=== PATIENT | male | born 1980 | race Caucasian/White ===

== ENCOUNTER 2020-01-01 15:12 | Outpatient (CLI) | payer OTHER ==
[2020-01-01 16:25] VITALS: BP 110/80
--- NOTE | 2020-01-01 16:25 | SLEEP CARE CONSULTATION ---
Information from patient questionnaire entered by Maribel Burdick. I have reviewed and concur with the information entered by Maribel Burdick. This document represents the service I personally performed and the decisions made by me, Viky Lyle ARNP. History of Present Illness Service Date and Time: 01/01/2020 1512 Reason for Visit: New patient, Previously diagnosed sleep apnea, sleep apnea on CPAP therapy Chief Complaint: reports: Unrefreshed sleep, Snoring, Excessive daytime sleepiness, Observed pauses in breathing, Fatigue, Frequent awakenings at night, Other (headache). denies: Insomnia Date of Onset: 12-15 years Usual bedtime: 9 pm Snores at night: Yes Observed to quit breathing while asleep: Yes Sleeps alone due to snoring: No Number of times waking at night: 4-6 Reasons for waking at night: reports: Snoring (when not using machine), Gasping for air (when not using machine), Bathroom. 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 He states when he was diagnosed he had to do two studies and was told after the second study that he had more central apneas than obstructive ones. He states lower pressures felt better but did not adequately control his apneas. He states he has reduced all of his chief complaints with use of CPAP therapy. He states the more he can use the machine the better he feels overall. He has been feeling that the pressure in the mask is too high. He uses the ramp feature but still has difficulty falling asleep and cannot get back to sleep with the mask on if he wakes up during the night because the pressure in the mask is too high. He is tightening the straps very tight to keep it on and this reduces air leaks completely. He really likes using this therapy and would like to see what can be done to improve this feeling of elevated pressure so he can more easily use the machine. - Parasomnia Symptoms Ever been unable to move upon waking from sleep: No Walks in sleep: No Talks in sleep: No Ever acted out dreams in sleep: Yes Ever felt weak in the knees when startled or emotional: No Bothered by creepy, crawly, restless sensations in legs: No Problems with memory or concentration: Yes CPAP Compliance Data - Data Reviewed with Patient Average duration of nightly device use: 5.9 Compliance rate %: 66.1 (180 days) Current pressure setting (cmH2O): 12-14 Humidity settin Heated hose settin Average residual AHI: 3.7 Central apnea: 1.2 Obstructive apnea: 1.1 Average large leak: 27 mins 12 sec Subjective Patient concerns: reports: mask discomfort (has to tighten straps due to pressure being so high; very tight to face). denies: aerophagia, air blowing in eyes, mask leak noise, condensation in mask/hose, nasal congestion, dry mouth, nose, throat, epistaxis, other Observed to snore while using device: No Current pressure setting perceived as: too high On therapy, patient: reports: sleeping better, awakening more refreshed, being more awake and alert during the day, more rested overall. denies: drowsiness while driving Initial [place] Sleepiness Scale score: 14 (in 2019) Past Medical History Past Medical History: reports: Anxiety, Depression, Mood disorder, Other (Chronic migraines, enlarged prostate, PTSD, chronic neck pain, Tinnitus). denies: Hypertension, Claustrophobia, Congestive Heart Failure, Diabetes, Stroke, Coronary Heart Disease, Gout, Arrythmia, Hypothyroidism, Anemia, Impotence, Asthma, GERD Social History The patient's occupation is a [employer]. Patient is and lives in [place]. Have you smoked in the past 12 months: No Cigarettes per day (20/pack): 20 Years of smokin Quit date: 2017 Smoking Pack Years: 9.0 Alcohol use: Yes Alcohol amount and frequency: 3 beers once a week Caffeine use: Yes Caffeine amount and frequency: 1 cup of coffee a day Family History Family history of sleep disordered breathing: No Family Hx Sleep Apnea: Sibling: Snoring Allergies and Home Medications Drug allergies reviewed: Yes (NKDA) Home medication list reviewed: Yes Allergy and home medication list: Aimovig 140 ml Maxalt 10 mg Flomax Review of Systems Weight loss over past 5 years: 30 Cardiovascular: denies: high blood pressure, palpitations, chest pain, irregular heart rate or pulse, leg or foot swelling, have to sleep sitting up Respiratory: denies: shortness of breath, chronic cough Gastrointestinal: denies: heartburn, difficulty swallowing Urinary: reports: frequency, urgency. denies: impotence Neurological: reports: headaches. denies: seizure, head trauma, disorientation, speech dysfunction, gait or balance problems, fainting or unconsciousness Psychiatric: reports: anxiety, depression, mood disorder, other (PTSD). denies: Attention Deficit Hyperactivity, claustrophobia Ear/Nose/Throat: reports: nasal congestion (right side always plugged), tonsillectomy, wisdom teeth removed. denies: sinus problems, nose bleeds, dry mouth/throat, hoarseness, injury to nose Endocrine: denies: thyroid disease Musculoskeletal: reports: neck pain. denies: muscle pain or cramping, mobility problems Immunologic: reports: other (Pet dander) Physical Exam Blood Pressure: 110/80 Cuff size: long Heart Rate: 65 O2 Saturation: 99 Height: 5 ft 9 in Weight: 183 lb Body Mass Index: 27.0 BMI Classification: Overweight HEENT: No craniofacial malformation Nostrils: partially obstructed Turbinates: normal Septum: midline Mouth and throat: narrow oropharynx Soft palate: normal Hard palate: arched Uvula: normal Uvula visualization: 50% Mallampati Class II Tongue: normal in size Tonsils: absent bilaterally Chin and jaw: normal size and position Neck: normal w/o lymphadenopathy or thyromegaly Heart: regular rate and rhythm Lungs: clear bilaterally Impression and Plan 1. Obstructive Sleep Apnea-Hypopnea Syndrome, unknown, with good treatment compliance and good apnea control. On CPAP therapy, there is improved sleep quality and feels more rested overall. We do not yet have a copy of his records, including sleep study but patient states he was moderate to severe with obstructive/central apneas mixed. He will attempt to obtain records and get them to us. He has been feeling like the pressure is too much and he is having a hard time using the CPAP. He states he has been using the ramp feature but if he wakes up during the night he cannot return to sleep because the pressure feels so high. He is also tightening the straps on the mask to get a good seal due to the pressure being too high. I will lower the pressure down to 10-14 cm H2O and have him follow up with us in a month to see how he is responding and if this reduces his discomfort from the pressure. Patient's apnea severity and rationale for treatment to reduce apnea, improve sleep quality and reduce cardiovascular and cerebrovascular events was reviewed. I also reviewed the benefit of consistent device use of CPAP to reduce his risks for hypertension, cardiac disease, cerebrovascular disease, arrhythmia, diabetes, depression/anxiety and migranes. Change auto CPAP pressure at 10-14 cm H2O. Notify me if snoring with the mask or feeling that the pressure is too much or too little. Attempt to lose weight. Obtain previous sleep study and other records and return to office. Return for follow-up in 1 month, or sooner if concerns arise. Visit Type: In Office Time Spent with Patient (minutes): 40 Provider Statement: I spent 100% of the Face to Face Visit with the patient with greater than 50% spent counseling the patient and coordination of care.
== END 2020-01-01 15:13 | disposition home or self-care (01) ==
LOC: SC 15:12
PROVIDERS: ATTEND Nurse Practitioner Family
DX: G47.33 Obstructive sleep apnea (adult) (pediatric) (principal); E66.3 Overweight; Z68.27 Body mass index [BMI] 27.0-27.9, adult
CPT/HCPCS: 99204; 99212

== ENCOUNTER 2020-02-01 09:43 | Outpatient (CLI) | payer OTHER ==
--- NOTE | 2020-02-01 10:27 | SLEEP CARE CONSULTATION ---
Information from patient questionnaire entered by Maribel Burdick. I have reviewed and concur with the information entered by Maribel Burdick. This document represents the service I personally performed and the decisions made by me, Viky Lyle ARNP. History of Present Illness Service Date and Time: 02/01/2020 09 Previous diagnosis: Obstructive Sleep Apnea-Hypopnea Syndrome AHI: 0 (unknown, in 2018 or 2019) Reason for follow up: one month (with pressure change) Equipment type: CPAP Equipment obtained from: [employer] (CPAP Medical good but now with [place] and feels like getting run around) Mask style: Full face Backup mask available: Yes (old mask) Last cushion change: 2 weeks ago Prior sleep studies: Yes Year and Where: 2018 and 2019 - [facility] in [place], [place] HPI additional information: DENICE ANDERSEN was diagnosed to have unknown, AHI unknown, obstructive sleep apnea- hypopnea syndrome and returned today one month with pressure change follow-up. Patient has not yet been able to get his previous study information to our office. Sleep Study - Results Prior sleep studies: Yes Year and Where: 2018 and 2019 - [facility] in [place], [place] CPAP Compliance Data - Data Reviewed with Patient Average duration of nightly device use: 5 hours 23 minutes Compliance rate %: 76.7 Current pressure setting (cmH2O): 10-14 Average residual AHI: 2.4 Average large leak: 1 minute 4 seconds Subjective Missed days of use due to: reports: other (Heat) Patient concerns: reports: nasal congestion (alternating congestion in nasal passages that clears 1-2 hour after getting off of CPAP), other (Still having some issues with waking up in middle night and having mask comfort/pressure issue, but has improved with reduction of pressure). denies: aerophagia, mask discomfort, air blowing in eyes, mask leak noise, condensation in mask/hose, dry mouth, nose, throat, epistaxis Observed to snore while using device: No Current pressure setting perceived as: comfortable On therapy, patient: reports: sleeping better, awakening more refreshed, being more awake and alert during the day, more rested overall. denies: drowsiness while driving Initial [place] Sleepiness Scale score: 14 (in 2019) Current [place] Sleepiness Scale score: 13 Allergies and Home Medications Drug allergies reviewed: Yes (NKDA) Home medication list reviewed: Yes (no changes) Review of Systems Review of systems same as previous: Yes (No changes) Physical Exam Heart Rate: 61 O2 Saturation: 98 Height: 5 ft 9 in Weight: 180 lb Body Mass Index: 26.6 BMI Classification: Overweight Impression and Plan 1. Obstructive Sleep Apnea-Hypopnea Syndrome, unknown, with good treatment compliance and good apnea control. On CPAP therapy, the patient has better sleep quality and is more rested overall. Nasal congestion can be reduced with increasing the CPAP humidity as shown on sample device. The heated hose can be adjusted higher if condensation with higher humidity setting. Saline nasal spray sample was also given to use prior to CPAP to clear nasal secretions and wash off any nasal allergens to facilitate nasal breathing. In addition, a steamy shower before bed will often assist nasal drainage. Printed instructions given on how to change humidity and heated hose settings with rationale explaining why to change. Patient's apnea severity and rationale for treatment to reduce apnea, improve sleep quality and reduce cardiovascular and cerebrovascular events was reviewed. I also reviewed the benefit of consistent device use of CPAP for hypertension, cardiac disease, cerebrovascular disease, arrhythmia, depression, and migraines. * Continue auto CPAP pressure at 10-14 cmH2O * Obtain previous study information and bring in to office * Notify me if snoring with mask or feeling that the pressure is too much or too little * Attempt to lose weight * Call this office if any problems using CPAP * Return for follow up in 1 year, or sooner if concerns arise Visit Type: In Office Time Spent with Patient (minutes): 19 Provider Statement: I spent 100% of the Face to Face Visit with the patient with greater than 50% spent counseling the patient and coordination of care.
== END 2020-02-01 09:44 | disposition home or self-care (01) ==
LOC: SC 09:43
PROVIDERS: ATTEND Nurse Practitioner Family
DX: G47.33 Obstructive sleep apnea (adult) (pediatric) (principal); E66.3 Overweight; Z68.26 Body mass index [BMI] 26.0-26.9, adult
CPT/HCPCS: 99212; 99213

== ENCOUNTER 2021-01-13 10:20 | Outpatient (CLI) | payer OTHER ==
--- NOTE | 2021-01-13 10:44 | SLEEP CARE CONSULTATION ---
Information from patient questionnaire entered by Maribel Burdick. I have reviewed and concur with the information entered by Maribel Burdick. This document represents the service I personally performed and the decisions made by , Viky Lyle ARNP. History of Present Illness Service Date and Time: 01/13/2021 1020 Previous diagnosis: Moderate, Obstructive Sleep Apnea-Hypopnea Syndrome AHI: 18.9 (in 2019) Reason for follow up: annual (last seen 12/2019) Equipment type: CPAP Equipment obtained from: [employer] (getting supplies but has had difficulty getting orders right) Mask style: Full face Backup mask available: Yes (old mask) Last cushion change: not sure, 1-2 months Prior sleep studies: Yes Year and Where: 2019 - [facility] in [facility] additional information: DENICE ANDERSEN was diagnosed to have moderate, AHI 18.9, obstructive sleep apnea- hypopnea syndrome and returned today for CPAP therapy annual follow-up. CPAP Compliance Data - Data Reviewed with Patient Average duration of nightly device use: 6 hr 29 min Compliance rate %: 82.2 (180 days) Current pressure setting (cmH2O): 10-14 Humidity settin Heated hose settin Average residual AHI: 3.2 Average large leak: 6 min 2 sec Subjective Missed days of use due to: reports: illness, travel, other (unit recall) Patient concerns: reports: other (recall on machine). denies: aerophagia, mask discomfort, air blowing in eyes, mask leak noise, condensation in mask/hose, nasal congestion, dry mouth, nose, throat, epistaxis Observed to snore while using device: No Current pressure setting perceived as: comfortable On therapy, patient: reports: sleeping better, awakening more refreshed, being more awake and alert during the day, more rested overall. denies: drowsiness while driving Initial [place] Sleepiness Scale score: 14 (in 2020) Current [place] Sleepiness Scale score: 16 Allergies and Home Medications Home medication list reviewed: Yes (Aimovig) Review of Systems Review of systems same as previous: Yes (no changes) Physical Exam Heart Rate: 72 O2 Saturation: 98 Height: 5 ft 9 in Weight: 187 lb Body Mass Index: 27.6 BMI Classification: Overweight Impression and Plan 1. Obstructive Sleep Apnea-Hypopnea Syndrome, moderate, with good treatment compliance and good apnea control. On CPAP therapy, the patient has better sleep quality and is more rested overall. Patient heard about the recall and stopped using his CPAP due to possible cancer risks. He is getting more tired, having a hard time focusing since not able to used his device and would like to get it replaced. He has that will replace his device if on the recall. Patient has already registered their device for the recall. Patient denies any black particles seen in machine or hoses or any unusual odors coming from device. He has experienced some excess mucus in his throat and a cough with use this last year. I will write for a replacement device and have patient follow up after he obtains his new machine for a compliance followup. Patient voiced understanding and agreement with plan. Patient's apnea severity and rationale for treatment to reduce apnea, improve sleep quality and reduce cardiovascular and cerebrovascular events was reviewed. I also reviewed the benefit of consistent device use of CPAP for hypertension, cardiac disease, cerebrovascular disease, arrhythmia, depression and migraines. * Continue auto CPAP pressure at 10-14 cmH2O * Replacement device for recalled machine * Notify me if snoring with mask or feeling that the pressure is too much or too little * Attempt to lose weight * Call this office if any problems using CPAP * Return for follow up one month after obtaining device, or sooner if concerns arise Counseling Topics: Spare mask, Weight loss health impact Visit Type: In Office Time Spent with Patient (minutes): 24 Provider Statement: I spent 100% of the Face to Face Visit with the patient with greater than 50% spent counseling the patient and coordination of care.
== END 2021-01-13 10:21 | disposition home or self-care (01) ==
LOC: SC 10:20
PROVIDERS: ATTEND Nurse Practitioner Family
DX: G47.33 Obstructive sleep apnea (adult) (pediatric) (principal)
CPT/HCPCS: 99212; 99213

== ENCOUNTER 2021-04-26 13:51 | Outpatient (CLI) | payer OTHER ==
[2021-04-26 14:36] VITALS: BP 122/69
--- NOTE | 2021-04-26 14:36 | SLEEP CARE CONSULTATION ---
Information from patient questionnaire entered by Sergio Calvert MA. I have reviewed and concur with the information entered by Sergio Calvert MA. This document represents the service I personally performed and the decisions made by , Viky Lyle ARNP. History of Present Illness Service Date and Time: 04/26/2021 1351 Previous diagnosis: Moderate, Obstructive Sleep Apnea-Hypopnea Syndrome AHI: 18.9 (in 2018) Reason for follow up: first compliance (IST COMPLIANCE - 02/04 RESMED), first compliance after device update Equipment type: CPAP Equipment obtained from: [employer] (hasn't got any supplies for a while, needs to check with them) Mask style: Full face Backup mask available: Yes (old mask) Last cushion change: 2-3 weeks Prior sleep studies: Yes Year and Where: 2018 - [facility] in [place], [place] HPI additional information: DENICE ANDERSEN was diagnosed to have moderate, AHI 18.9, obstructive sleep apnea- hypopnea syndrome and returned today for CPAP therapy first compliance after device update follow-up. Sleep Study - Results Prior sleep studies: Yes Year and Where: 2019 - [facility] in [place], [place] CPAP Compliance Data - Data Reviewed with Patient Average duration of nightly device use: 6 HOURS 24 MINUTES Compliance rate %: 87 (per PT missed days due to surgery) Current pressure setting (cmH2O): 10-14 Average residual AHI: 2.6 Central apnea: 1.8 Obstructive apnea: .7 Subjective Missed days of use due to: reports: other (missed days after Septoplasty in March) Patient concerns: denies: aerophagia, mask discomfort, air blowing in eyes, mask leak noise, condensation in mask/hose, nasal congestion, dry mouth, nose, throat, epistaxis, other Observed to snore while using device: No Current pressure setting perceived as: comfortable On therapy, patient: reports: sleeping better, awakening more refreshed, being more awake and alert during the day, more rested overall. denies: drowsiness while driving Initial [place] Sleepiness Scale score: 14 (in 2019) Current [place] Sleepiness Scale score: 17 (in 2020) Allergies and Home Medications Known drug allergies: Yes (animal dander) Home medication list reviewed: Yes (no change) Review of Systems Review of systems same as previous: No (Septoplasty (Mar 30), healing well) Physical Exam Vital signs obtained and entered by: Augustin CALVERT CMA [facility] Blood Pressure: 122/69 (left) Cuff size: wrist Heart Rate: 72 O2 Saturation: 97 (with mask) Height: 5 ft 9 in Weight: 188 lb (with boots and uniform) Body Mass Index: 27.7 BMI Classification: Overweight Impression and Plan 1. Obstructive Sleep Apnea-Hypopnea Syndrome, moderate, with good treatment compliance and good apnea control. On CPAP therapy, the patient has better sleep quality and is more rested overall. Patient is satisfied with current therapy and has significant reduction of his sleep apneas. He is happy with new device. Patient's apnea severity and rationale for treatment to reduce apnea, improve sleep quality and reduce cardiovascular and cerebrovascular events was reviewed. I also reviewed the benefit of consistent device use of CPAP for hypertension, cardiac disease, cerebrovascular disease, arrhythmia, depression and migraines. Patient was encouraged to lose weight for their overall health and to reduce apneas. * Continue auto CPAP pressure at 10-14 cmH2O * Notify me if snoring with mask or feeling that the pressure is too much or too little * Attempt to lose weight * Call this office if any problems using CPAP * Return for follow up in 1 year, or sooner if concerns arise Counseling Topics: Spare mask, Weight loss health impact Visit Type: In Office Time Spent with Patient (minutes): 11 Provider Statement: I spent 100% of the Face to Face Visit with the patient with greater than 50% spent counseling the patient and coordination of care.
== END 2021-04-26 13:52 | disposition home or self-care (01) ==
LOC: SC 13:51
PROVIDERS: ATTEND Nurse Practitioner Family
DX: G47.33 Obstructive sleep apnea (adult) (pediatric) (principal)
CPT/HCPCS: 99212

== ENCOUNTER 2022-08-21 09:40 | Outpatient (CLI) | payer OTHER ==
--- NOTE | 2022-08-21 12:40 | MRI Report ---
PROCEDURE: CERVICAL SPINE WO INDICATIONS: CERVICALGIA TECHNIQUE: Noncontrast sagittal T1 spin echo and T2 fast spin echo, sagittal STIR, foraminal oblique sagittal T2 fast spin echo, and axial gradient echo or T2 fast spin echo through the cervical spine. COMPARISON: None. FINDINGS: Image quality: Excellent. Alignment and Curvature: There is normal bony alignment. Bone Marrow: Marrow demonstrates normal overall signal. Spinal Cord: Visualized spinal cord has normal size and signal. No cerebellar tonsillar herniation. Paraspinous Soft Tissues: No paravertebral masses. Prevertebral soft tissues are normal in thicknes s. C2-C3: Normal in appearance. C3-C4: Mild disc bulge. No canal stenosis. AP diameter of the canal is 13.3 mm. No foraminal stenos is. C4-C5: Mild broad-based central posterior disc protrusion indenting on the cord. No canal stenosis. AP diameter of the canal is 11.7 mm. Foramina are patent. C5-C6: Posterior annulus tear. Mild broad-based posterior disc protrusion, slightly eccentric to the right, indenting on the cord. No canal stenosis. AP diameter of the canal measures 12.6 mm. Foramina are patent. C6-C7: Mild posterior disc bulge. No canal stenosis. AP diameter of the canal is 12.6 mm. No foramin al stenosis. C7-T1: Shallow right paracentral disc protrusion. No canal stenosis. AP diameter of the canal is 13. 8 mm. No foraminal stenosis. IMPRESSION: 1. There are disc protrusions at C4-C5 and C5-C6 which indent on the cord. There is posterior annulus tear at C5-C6. However, there is no associated canal stenosis. 2. No canal stenosis or foraminal stenosis. 3. Normal appearance of cervical cord. Reviewed by: Sebastián Carlton MD on 08/21/2022 12:39 PM PDT Approved by: Sebastián Carlton MD on 08/21/2022 12:39 PM PDT Station ID: [id number]
== END 2022-08-21 09:41 | disposition home or self-care (01) ==
LOC: DI 09:40
PROVIDERS: ATTEND Physician Assistant
DX: M50.222 Other cervical disc displacement at C5-C6 level (principal); M50.322 Other cervical disc degeneration at C5-C6 level

== ENCOUNTER 2023-01-31 16:41 | Outpatient (CLI) | payer OTHER ==
--- NOTE | 2023-01-31 11:34 | SLEEP CARE CONSULTATION ---
Information from patient questionnaire entered by Bekah Garsia. I have reviewed and concur with the information entered by Bekah Garsia. This document represents the service I personally performed and the decisions made by me, Viky Lyle ARNP. History of Present Illness Service Date and Time: 01/31/2023 1120 Previous diagnosis: Moderate, Obstructive Sleep Apnea-Hypopnea Syndrome AHI: 18.9 (in 2018) Reason for follow up: annual (LAST SEEN 04/2021) Equipment type: CPAP (RESMED Airsense 11, s/u 01/2021) Equipment obtained from: [facility] (not getting supplies, needs updated prescriptio n) Mask style: Full face Mask brand: Respironics (Dreamwear) Backup mask available: Yes (other mask) Last cushion change: last November Prior sleep studies: Yes Year and Where: 2018 - [facility] in [place], [place] HPI additional information: DENICE ANDERSEN was diagnosed to have moderate, AHI 18.9, obstructive sleep apnea- hypopnea syndrome and returns via video telehealth visit today for CPAP therapy annual follow-up. Sleep Study - Results Prior sleep studies: Yes Year and Where: 2019 - [facility] in [place], [place] CPAP Compliance Data - Data Reviewed with Patient Average duration of nightly device use: 5 HRS 50 MINS Compliance rate %: 75 (08/03/22-01/29/23; 157/180 days used) Current pressure setting (cmH2O): 10-14 Average residual AHI: 2.3 Central apnea: 1.6 Obstructive apnea: 0.5 Hypopnea: 0.2 Average large leak: 3.2 L/min Subjective Missed days of use due to: reports: illness (Covid in December), travel Patient concerns: reports: air blowing in eyes (needs to change cuahion), mask leak noise. denies: aerophagia, mask discomfort, condensation in mask/hose, nasal congestion, dry mouth, nose, throat, epistaxis Observed to snore while using device: No Current pressure setting perceived as: comfortable On therapy, patient: reports: sleeping better, awakening more refreshed, being more awake and alert during the day, more rested overall. denies: drowsiness while driving Initial Liberty Sleepiness Scale score: 14 (in 2019) Current Liberty Sleepiness Scale score: 17 Allergies and Home Medications Known drug allergies: No Drug allergies reviewed: Yes Home medication list reviewed: Yes (no changes) Review of Systems Review of systems same as previous: Yes (no changes) Physical Exam Vital signs obtained and entered by: BEKAH Tabares MA Height: 5 ft 9 in (PER PT) Weight: 181 lb (PER PT) Body Mass Index: 26.7 BMI Classification: Overweight Impression and Plan 1. Obstructive Sleep Apnea-Hypopnea Syndrome, moderate, with good treatment compliance and good apnea control. On CPAP therapy, the patient has better sleep quality and is more rested overall. Patient needs an updated prescription so that he can get supplies. He gets some air leaking into his eyes and leak noises because the cushion needs to be changed. I will update his prescription today. Patient has significant improvement of their sleep apnea and is satisfied with current CPAP therapy. Patient denies problems with oral dryness, nasal congestion, epistaxis, skin irritation or aerophagia. Patient states he will be moving sometime in April and I encouraged him to follow-up with a sleep provider in his new area when he is able to next year. He voiced understanding and agreement. Patient's apnea severity and rationale for treatment to reduce apnea, improve sleep quality and reduce cardiovascular and cerebrovascular events was reviewed. I also reviewed the benefit of consistent device use of CPAP for hypertension, cardiac disease, cerebrovascular disease, arrhythmia, depression and migraines. 2. Overweight, unspecified. Currently patients BMI is 26.7. Obesity increases the risk of apnea, CPAP pressure requirements and overall health risks especially cardiovascular and diabetes. Thus patient is advised to lose weight. * Continue auto CPAP pressure at 10-14 cmH2O * Update supplies * Notify me if snoring with mask or feeling that the pressure is too much or too little * Attempt to lose weight * Call this office if any problems using CPAP * Return for follow up in 1 year, or sooner if concerns arise Counseling Topics: Spare mask, Weight loss health impact Visit Type: Telehealth Video Video Type: Doximity Patient Location: Home Location of Provider: Office Patient agrees and consents to this telehealth visit type: Yes Patient agrees to have their insurance billed: Yes Time Spent with Patient (minutes): 15 Provider Statement: I spent 100% of the Telehealth Video Call with the patient with greater than 50% spent counseling the patient and coordination of care.
== END 2023-01-31 16:42 | disposition home or self-care (01) ==
LOC: SC 16:41
PROVIDERS: ATTEND Nurse Practitioner Family
DX: G47.33 Obstructive sleep apnea (adult) (pediatric) (principal); E66.3 Overweight; Z68.26 Body mass index [BMI] 26.0-26.9, adult

== ENCOUNTER 2023-04-02 10:23 | Outpatient (CLI) | payer OTHER ==
--- NOTE | 2023-04-02 13:54 | MRI Report ---
PROCEDURE: KNEE WO - RT INDICATIONS: KNEE PAIN TECHNIQUE: Noncontrast sagittal PD fast spin echo and T2 fast spin echo with fat saturation, sagittal 3-D gradie nt sequence with fat saturation; coronal T1 spin echo and PD fast spin echo with fat saturation, and axial PD fast spin echo with fat saturation through the knee. COMPARISON: None. FINDINGS: Image quality: Excellent. Menisci: Linear horizontal high T2 signal intensity traverses the inner, middle, peripheral thirds of the posterior horn medial meniscus, demonstrating inferior articular surface extension, indicating h orizontal tearing. Lateral meniscus is intact. Cruciate ligaments: The anterior and posterior cruciate ligaments appear intact. Medial structures: The medial collateral ligament appears intact. Visualized portions of the pes ans erinus tendons appear normal. No abnormal bursal fluid. Lateral structures: The lateral collateral ligament, long and short heads of the biceps femoris tend on appear intact. The popliteus tendon appears normal; the popliteofibular ligament appears intact. The posterosuperior and anteroinferior popliteomeniscal fascicles appear intact. The arcuate and fa bellofibular ligaments appear intact, around the lateral inferior geniculate artery. Iliotibial band appears normal. Anterior structures: The quadriceps and patellar tendons appear intact. Patellar alignment is shan l. No femoral trochlear dysplasia or ventral trochlear prominence. No edema in the infrapatellar fa t pad. Bones and cartilage: No bone marrow contusions or fractures. Mild articular cartilage loss diffusely overlies the weightbearing aspects of the medial femoral condyle and medial tibial plateau. Joint space: There is physiologic knee joint fluid. Trace Claros's cyst. Normal appearing synovial p licae are incidentally noted. IMPRESSION: 1. Medial meniscal tear. 2. Medial compartment articular cartilage loss. 3. Trace Claros's cyst. Reviewed by: Nicolás Huffman MD on 04/02/2023 1:53 PM PST Approved by: Nicolás Huffman MD on 04/02/2023 1:53 PM PST Station ID: [id number]
== END 2023-04-02 10:24 | disposition home or self-care (01) ==
LOC: DI 10:23
PROVIDERS: ATTEND Physician Assistant
DX: S83.241A Other tear of medial meniscus, current injury, right knee, initial encounter (principal); M94.261 Chondromalacia, right knee; M71.21 Synovial cyst of popliteal space [Baker], right knee